=== PATIENT | female | born 1950 | race Caucasian/White ===

== ENCOUNTER 2016-05-24 08:53 | Emergency (ER) | payer OTHER ==
[~2016-05-24] VITALS: Ht 162.6 cm; Wt 68.0 kg
[~2016-05-24 08:53] MED LIST: ATOR10TA82 PO; NAPR1TAB9 PO
[2016-05-24 09:02] VITALS: TEMP 36.5; Ht 162.6 cm; Wt 68.0 kg
[2016-05-24] MEDS ORDERED: ONDANSETRON INJ 2 MG/ML 2 ML VIAL IV STA (09:24)
[2016-05-24] MEDS ORDERED: MoRPHine SULFATE 4 MG/ML 1 ML CARP\\VIAL IV STA (09:24)
[2016-05-24] MEDS ORDERED: SODIUM CHLORIDE 0.9% 1000ML 1,000 ML IV STA (09:24)
[2016-05-24 09:43] LABS: BASO % 0.2 %; BASO ABS # 0.02 K/uL (0-0.2); COMPLETE YES; EOS % 0.2 %; HEMATOCRIT 46.3 % (37-47); IG% 0.1 %; LYMPH % 14.2 %; LYMPH ABS # 1.34 K/uL (1.2-3.4); MEAN CORPUSCULAR HEMOGLOBIN 31.7 pg (25-34); MEAN CORPUSCULAR HGB CONC 35.6 g/dl (32-36); MEAN PLATELET VOLUME 11.4 fL (7.4-10.4); MONO % 4.5 %; NEUT % 80.8 %; PLATELET COUNT 236 K/uL (130-400); WHITE BLOOD COUNT 9.46 K/uL (4.8-10.8)
[2016-05-24 09:58] LABS: URINE APPEARANCE CLEAR (CLEAR); URINE BILIRUBIN NEG (NEG); URINE COLOR YELLOW; URINE NITRITE NEG (NEG); URINE PH 6.5 (4.5-7.5); UROBILINOGEN NEG (NEG)
[2016-05-24 09:59] LABS: MANUAL MICROSCOPIC REQUIRED? NO; REVIEW REQ? NO
--- NOTE | 2016-05-24 10:08 | DIAGNOSTIC IMAGING REPORT ---
PA CHEST WITH LEFT-SIDED RIB SERIES CLINICAL HISTORY: Left-sided chest wall pain. No history of trauma. FINDINGS: A PA chest radiograph with 4 additional views from a left-sided rib series is compared to study dated 08/10/2015. The cardiomediastinal silhouette is unremarkable. Chronic interstitial thickening is unchanged. The lungs and pleural spaces are clear. No pneumothorax is seen. The skeletal structures are osteopenic. There is no radiographic evidence of left-sided rib fracture on the rib series as clinically queried. The remainder of the bony thorax is grossly intact. IMPRESSION: 1. No acute cardiopulmonary abnormality. 2. There is no radiographic evidence of left-sided rib fracture as clinically queried. Electronically signed by: Bashir Main M.D. 05/24/2016 10:05 AM Dictated Date/Time: 05/24/2016 10:04 AM
[2016-05-24 10:16] LABS: ALKALINE PHOSPHATASE 110 U/L (45-117); ALT/SGPT 30 U/L (12-78); BLOOD UREA NITROGEN 14 mg/dl (7-18); BUN/CREATININE RATIO 19.3 (10-20); CALCIUM 10.1 mg/dl (8.5-10.1); CARBON DIOXIDE 26 mmol/L (21-32); CHLORIDE 103 mmol/L (98-107); CREATININE 0.71 mg/dl (0.60-1.20); GLUCOSE 165 mg/dl (70-99); SODIUM 137 mmol/L (136-145)
[2016-05-24 11:04] LABS: AST/SGOT 15 U/L (15-37)
[2016-05-24] MEDS ORDERED: OPTIRAY 320 IV PRN (12:30)
--- NOTE | 2016-05-24 12:42 | DIAGNOSTIC IMAGING REPORT ---
CT ANGIOGRAM OF THE CHEST CLINICAL HISTORY: Atypical chest pain. Left-sided back pain. COMPARISON STUDY: Chest and rib films dated 05/24/2016. TECHNIQUE: Following the IV administration of 118 cc of Optiray 320, CT angiogram of the chest was performed from the upper abdomen to the thoracic inlet utilizing the pulmonary embolus protocol. Images are reviewed in the axial, sagittal, and coronal planes. 3-D MIPS images are created and assessed. IV contrast was administered without complication. CT DOSE: 372.81 mGy.cm FINDINGS: Thyroid: Imaged portions of the thyroid gland are normal in size and attenuation. Thoracic aorta: There is mild atherosclerotic calcification of the thoracic aorta, which is normal in caliber and demonstrates standard 3-vessel arch anatomy. No dissection is seen. Pulmonary vasculature: The pulmonary trunk is normal in caliber. There are no filling defects identified in main, lobar, or segmental pulmonary branches to suggest pulmonary embolus. Heart: The heart is normal in size and configuration, and without pericardial effusion. There are scattered coronary artery calcifications. Lungs and pleural spaces: Evaluation of the lung parenchyma is degraded by expiratory motion artifact. There is no airspace consolidation typical for pneumonia or pleural effusion. Dependent atelectasis is observed. Emphysematous change is noted. Apical scarring is identified. The trachea and central airways are clear. Mediastinum: There is no mediastinal lymphadenopathy. Hazel: Clear. Axillae: There is no axillary lymphadenopathy. Upper abdomen: Partially visualized upper abdominal viscera is within normal limits. Skeletal structures: The skeletal structures are osteopenic. Mild degenerative change is noted throughout the thoracic spine. No lytic or blastic bony lesions are seen. IMPRESSION: 1. There is no evidence of pulmonary embolus in the main, lobar, or segmental pulmonary arteries. 2. There is no airspace consolidation or pleural effusion. 3. Emphysema. 4. Additional findings as above. Electronically signed by: Bashir Main M.D. 05/24/2016 12:40 PM Dictated Date/Time: 05/24/2016 12:30 PM
[2016-05-24] MEDS ORDERED: MoRPHine SULFATE 4 MG/ML 1 ML CARP\\VIAL ONE (12:50)
--- NOTE | 2016-05-24 14:20 | DIAGNOSTIC IMAGING REPORT ---
CT SCAN OF THE ABDOMEN AND PELVIS WITHOUT IV CONTRAST CLINICAL HISTORY: Flank pain. COMPARISON STUDY: No priors. TECHNIQUE: CT scan of the abdomen and pelvis is performed from the lung bases to the proximal femora. Images are reviewed in the axial, sagittal, and coronal planes. IV contrast was not administered for this examination. Automated dose control exposure was utilized. CT DOSE: 666.32 mGy.cm FINDINGS: Lung bases: The heart is normal in size and without pericardial effusion. There is dependent atelectasis. The lung bases are otherwise clear. Liver: The unenhanced liver is normal in size, contour, and attenuation. There is no intrahepatic biliary ductal dilatation. Gallbladder: There are large calcified gallstones. The gallbladder is otherwise normal in appearance. Spleen: Normal in size and attenuation. Pancreas: Moderately atrophic and grossly unremarkable. Adrenal glands: A 1.2 cm left adrenal nodule meets CT criteria for a fat-containing adenoma. The right adrenal gland is unremarkable. Kidneys: The unenhanced kidneys are normal in size and without hydronephrosis. There is excreted contrast within the renal collecting system bilaterally which precludes assessment for renal calculi. There is no evidence of urothelial lesion within the renal pelvis bilaterally. Subcentimeter cortical hypodensities likely represent cysts but are too small for definitive characterization. Abdominal vasculature: The abdominal aorta is normal in course and caliber noting advanced atherosclerotic calcification. Bowel: The small bowel and colon are normal in course and caliber. There is mild to moderate sigmoid diverticulosis without CT evidence of acute diverticulitis. Moderate colonic fecal retention is observed. The appendix is normal as visualized. Peritoneum: There is no intraperitoneal free air or abdominal ascites. Lymphadenopathy: None. Pelvic viscera: The the bladder is filled with excreted contrast and is normal as imaged. The uterus is surgically absent. No adnexal lesion is seen. Skeletal structures: The skeletal structures are osteopenic. There is minimal lumbosacral spondylosis. No lytic or blastic lesions are seen. IMPRESSION: 1. There are no acute infectious or inflammatory findings in the abdomen or pelvis. 2. Cholelithiasis. 3. Excreted contrast fills the renal collecting system bilaterally, precluding assessment for renal calculi. There is no hydronephrosis. 4. Mild to moderate sigmoid diverticulosis without CT evidence of acute diverticulitis. 5. Additional findings as above. Electronically signed by: Bashir Main M.D. 05/24/2016 2:18 PM Dictated Date/Time: 05/24/2016 2:12 PM
[2016-05-24 14:37] VITALS: BP 143/84; PULSE 57; O2SAT 95
--- NOTE | 2016-05-24 14:38 | EMERGENCY ROOM VISIT NOTE ---
ED Visit Note First contact with patient: 09:06 65-year-old female with left flank pain was fully evaluated by Jamar Bautista. Please see his note. I also independently evaluated the patient. The patient had multiple labs and imaging performed. No definite ureteral calculi were identified. The patient may have musculoskeletal pain. She is given a prescription for pain medication. The patient will require follow-up by her family physician or she is to return here if pain is not controlled at home.
[2016-05-24] MEDS ORDERED: OXYC-57 PO (14:49)
--- NOTE | 2016-05-24 16:46 | EMERGENCY ROOM VISIT NOTE ---
ED Visit Note First contact with patient: 09:06 Chief Complaint: Left-sided back pain. History of Present Illness: Ms. Miller is a 65-year-old white female who ambulates into the ED accompanied by her and multiple family members complaining of left-sided thoracic back pain. Patient reports approximately 6 days ago she reports that she started having mid left-sided thoracic back pain. She reports initially it was mild and has gradually increased in intensity. She describes her pain as a sharp sensation. She rates her discomfort 10/10. Her pain radiates around the thoracic back and into the anterior chest under the breast. Her pain worsens with palpation. She has not identified any alleviating factors related to the pain. Associated with her pain she reports she has been nauseated and had one episode of vomiting earlier today. She denies fevers, chills, sweats, skin eruptions, skin color changes, upper respiratory tract symptoms, cough, wheezing, shortness of breath, palpitations, orthopnea, dependent edema, previous clots, claudication, cramping, recent surgery/inactivity/extended travel, abdominal pain, diarrhea, constipation, rectal bleeding, black/tarry stools, urinary symptoms, hematuria. Review of Systems: As noted above in history of present illness. All body systems were reviewed and found to be negative as noted above. Past Medical History: Patient denies. Current Medications: Patient denies. Allergies to Medications: Patient denies. Social History: Patient is not employed; she lives with her and feels safe in her home environment; she admits to tobacco use and denies alcohol use. Physical Examination: Vital Signs: Date Time Temp Pulse Resp B/P Pulse Ox O2 Delivery O2 Flow Rate FiO2 05/24/16 14:37 57 18 143/84 95 Room Air 05/24/16 12:47 67 20 150/80 97 Room Air 05/24/16 11:29 58 18 120/69 96 Room Air 05/24/16 09:02 36.5 74 18 137/104 98 Room Air GENERAL: 65-year-old female in moderate distress due to pain, nontoxic-appearing , afebrile and hemodynamically stable. NEUROLOGICAL: Awake, alert and oriented to person, place and time. Answering questions appropriately and following commands. Normal gait. Good hand eye coordination. No focal motor sensory deficits. SKIN: Warm, dry and pink. No soft tissue eruptions or trauma noted. HEENT: Atraumatic and normocephalic. PERRL. Sclera white and conjunctiva pink. No drainage from naris. Oral cavity moist and pink. Pharynx is nonerythematous or edematous. Speech normal. No lymphadenopathy. Trachea midline. No jugular venous distention. BACK: No tenderness over the bony thoracic spine. Starting just left of the thoracic spine at the T7-T8 area patient has moderate tenderness over the skin and ribs without bony deformity or crepitus. There is no swelling or erythema. No skin eruptions consistent with shingles. No CVA tenderness. THORAX: Lungs sounds are clear to auscultation and equal bilaterally with symmetrical chest wall. No wheezing, rales or rhonchi. No crepitus, tenderness , subcutaneous air or deformities noted. HEART: Regular rate and rhythm. No gallops, rubs or murmurs are appreciated. ABDOMEN: Flat and soft with mild tenderness in the left upper quadrant and left side of the epigastrium area. Positive bowel sounds in all quadrants. No guarding, rigidity or organomegaly. EXTREMITIES: Moves all extremities well on command and with purpose. All distal neurovascular statuses are intact and equal bilaterally. No calf tenderness or cords. ED Course: Patient is assessed as noted above. Laboratory Testing: Test 05/24/16 09:20 05/24/16 09:25 05/24/16 09:32 05/24/16 10:21 Range/Units Urine Color YELLOW Urine Appearance CLEAR CLEAR Urine pH 6.5 4.5-7.5 Urine Specific [place] 1.020 1.000-1.030 Urine Protein 1+ NEG Urine Glucose (UA) TRACE NEG Urine Ketones NEG NEG Urine Occult Blood 1+ NEG Urine Nitrite NEG NEG Urine Bilirubin NEG NEG Urine Urobilinogen NEG NEG Urine Leukocyte Esterase NEG NEG Urine WBC (Auto) 1-5 0-5 /hpf Urine RBC (Auto) 10-30 0-4 /hpf Urine Hyaline Casts (Auto) 1-5 0-5 /lpf Urine Epithelial Cells (Auto) 10-20 0-5 /lpf Urine Bacteria (Auto) NEG NEG White Blood Count 9.46 4.8-10.8 K/uL Red Blood Count 5.20 4.2-5.4 M/uL Hemoglobin 16.5 12.0-16.0 g/dL Hematocrit 46.3 37-47 % Mean Corpuscular Volume 89.0 80-100 fL Mean Corpuscular Hemoglobin 31.7 25-34 pg Mean Corpuscular Hemoglobin Concent 35.6 32-36 g/dl Platelet Count 236 130-400 K/uL Mean Platelet Volume 11.4 7.4-10.4 fL Neutrophils (%) (Auto) 80.8 % Lymphocytes (%) (Auto) 14.2 % Monocytes (%) (Auto) 4.5 % Eosinophils (%) (Auto) 0.2 % Basophils (%) (Auto) 0.2 % Neutrophils # (Auto) 7.64 1.4-6.5 K/uL Lymphocytes # (Auto) 1.34 1.2-3.4 K/uL Monocytes # (Auto) 0.43 0.11-0.59 K/uL Eosinophils # (Auto) 0.02 0-0.5 K/uL Basophils # (Auto) 0.02 0-0.2 K/uL RDW Standard Deviation 40.6 36.4-46.3 fL RDW Coefficient of Variation 12.5 11.5-14.5 % Immature Granulocyte % (Auto) 0.1 % Immature Granulocyte # (Auto) 0.01 0.00-0.02 K/uL Sodium Level 137 136-145 mmol/L Potassium Level 4.0 3.5-5.1 mmol/L Chloride Level 103 98-107 mmol/L Carbon Dioxide Level 26 21-32 mmol/L Anion Gap 8.0 3-11 mmol/L Blood Urea Nitrogen 14 7-18 mg/dl Creatinine 0.71 0.60-1.20 mg/dl Est Creatinine Clear Calc Drug Dose 74.9 ml/min Estimated GFR () 103.6 Estimated GFR (Non- 89.4 BUN/Creatinine Ratio 19.3 10-20 Random Glucose 165 70-99 mg/dl Calcium Level 10.1 8.5-10.1 mg/dl Total Bilirubin 0.4 0.2-1 mg/dl Direct Bilirubin < 0.1 0-0.2 mg/dl Aspartate Amino Transf (AST/SGOT) 15 15-37 U/L Alanine Aminotransferase (ALT/SGPT) 30 12-78 U/L Alkaline Phosphatase 110 45-117 U/L Total Protein 8.3 6.4-8.2 gm/dl Albumin 4.2 3.4-5.0 gm/dl Lipase 188 73-393 U/L Bedside D-Dimer > 450 0-450 ng/mlFEU Bedside Troponin I 0.040 0-0.045 ng/ml PA Chest and Rib X-Rays: Were reviewed by myself and read by the radiologist showing no acute infiltrates, effusions or pneumothorax. Normal heart silhouette and bony anatomy. Chronic interstitial thickening is unchanged from previous. Chest CTA: Was reviewed by myself and read by the radiologist and shows no acute pulmonary emboli, no airspace consolidation or pleural effusions. Radiologist does note emphysema changes, skeletal structures are osteopenic, mild degenerative changes throughout the thoracic spine but no lytic or blastic lesions. Noncontrast Abdominal/Pelvic CT: Was reviewed by myself and the radiologist and shows no acute infectious or inflammatory findings in the abdomen and pelvis, cholelithiasis without evidence of cholecystitis, renal collection systems or foot with contrast precluding assessment for renal calculi but there was no hydronephrosis, there was mild to moderate sigmoid diverticulosis without evidence of acute diverticulitis. Patient was hydrated with normal saline, she received a total of 8 mg of morphine IV for pain and 4 mg of Zofran IV. Patient was reassessed multiple times during her stay in the emergency department. Patient's case was reviewed with Dr. Corea; he independently assessed the patient we agreed on diagnostic approach, treatment, disposition and plan. Patient was educated about tonight's findings and instructed on her treatment plan; she verbalizes understanding and agreement with this plan. Clinical Impression: Acute left-sided thoracic back pain. Decision-Making: Initially my differential diagnosis I considered shingles, cholelithiasis, pancreatitis, pyelonephritis, kidney stone, musculoskeletal disorder, diverticulitis and other causes. Disposition: Patient discharged home in stable condition; prior to departure she was reassessed and subjectively reported she was pain and symptom-free. Plan: Patient was placed on a sliding pain scale of ibuprofen, acetaminophen and Percocet; appropriate narcotic precautions were discussed with the patient and family members. Patient was encouraged to call her PCP in the morning and inform them of today' s ED visit and request follow-up care and treatment. Patient was given a urine strainer and encouraged to strain all urine and collect all stones for analysis. Patient was encouraged return the ED for uncontrolled pain, fevers, skin eruptions, bloody urine or any new/concerning symptoms.
== END 2016-05-24 15:00 | disposition home or self-care (01) ==
LOC: C.EDB 08:54
DX: M54.9 Dorsalgia, unspecified (principal); F17.200 Nicotine dependence, unspecified, uncomplicated

== ENCOUNTER → 2016-10-21 | Outpatient (CLI) | payer OTHER ==
[~2016-10-21] MED LIST changes: -ATOR10TA82 PO; -NAPR1TAB9 PO; +OXYC-57 PO
--- NOTE | 2016-10-21 14:19 | MAMMOGRAPHY REPORT ---
BILATERAL DIGITAL SCREENING MAMMOGRAM WITH CAD: 10/21/2016 CLINICAL HISTORY: Routine screening. Patient has no complaints. TECHNIQUE: Current study was also evaluated with a Computer Aided Detection (CAD) system. Bilateral CC and MLO views were obtained. COMPARISON: Comparison is made to exams dated: 10/21/2015 mammogram, 10/18/2014 mammogram, 06/20/2013 m ammogram, 05/24/2012 mammogram, 11/05/2010 mammogram, and 10/28/2009 mammogram - [facility] enter. BREAST COMPOSITION: There are scattered areas of fibroglandular density in both breasts. FINDINGS: No suspicious masses, calcifications, or areas of architectural distortion are noted in ei ther breast. There has been no significant interval change compared to prior exams. IMPRESSION: ACR BI-RADS CATEGORY 1: NEGATIVE There is no mammographic evidence of malignancy. A 1 year screening mammogram is recommended. The pa tient will receive written notification of the results. Approximately 10% of breast cancers are not detected with mammography. A negative mammographic report should not delay biopsy if a clinically suggestive mass is present. Evy Stark M.D. /:10/21/2016 11:08:50 [employer] Supervisor: Abril Ramos [facility] letter sent: Normal 1/2 BI-RADS Code: ACR BI-RADS Category 1: Negative
== END | disposition home or self-care (01) ==
LOC: C.MAMM 10:29
PROVIDERS: ATTEND Internal Medicine Geriatric Medicine
DX: Z12.31 Encounter for screening mammogram for malignant neoplasm of breast (principal)